=== PATIENT | male | born 1975 | race Caucasian/White ===

== ENCOUNTER 2018-02-08 23:17 | Emergency (ER) | payer MEDICAID ==
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
[2018-02-08] MEDS ORDERED: IBUPROFEN 800 MG TAB PO ONE (23:36)
[2018-02-09] MEDS ORDERED: HYDROCODONE/APAP 5/325 TAB PO ONE
[2018-02-09] MEDS ORDERED: fentaNYL 100 MCG/2 ML INJ IVP ONE (00:26)
[2018-02-09] MEDS ORDERED: NS 1,000 ML IV ONE (00:26)
[2018-02-09] MEDS ORDERED: KETOROLAC 15 MG/1 ML SDV IVP ONE (00:29)
[2018-02-09] MEDS ORDERED: IOPAMIDOL (ISOVUE 370) 100 ML BTL IV ONE (00:30)
[2018-02-09 00:31] LABS: PLATELET COUNT 253 10^3/uL (150-400)
[2018-02-09 01:29] VITALS: BP 134/75
== END 2018-02-09 01:47 | disposition home or self-care (01) ==
DX: R07.81 Pleurodynia (principal)
CPT/HCPCS: 82947-QW; 96374; J1885; J3010; Q9967

== ENCOUNTER 2018-05-20 02:51 | Emergency (ER) | payer MEDICAID ==
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
[2018-05-20] MEDS ORDERED: CEPHALEXIN 500MG PREPACK#4 BTL TAKEHOME ONE (03:55)
[2018-05-20] MEDS ORDERED: HYDROCOD/APAP 5/325 PREPACK#6 BTL TAKEHOME ONE (04:04)
[2018-05-20 04:24] VITALS: BP 146/92
== END 2018-05-20 04:15 | disposition home or self-care (01) ==
PROC: 0H9GXZZ Drainage of Left Hand Skin, External Approach (ICD-10-PCS; principal; 2018-05-20)
DX: L02.512 Cutaneous abscess of left hand (principal)

== ENCOUNTER → 2019-01-11 | Outpatient (CLI) | payer MEDICAID | LOC: FIMAGING 10:35 | PROVIDERS: ATTEND Physician Assistant Medical | DX: M50.321 Other cervical disc degeneration at C4-C5 level (principal) ==

== ENCOUNTER → 2019-02-20 | Outpatient (CLI) | payer MEDICAID ==
[~2019-02-20] MED LIST: GADOBUTROL 10 ML VIAL IVP ONE
== END ==
LOC: FIMAGING 14:43
PROVIDERS: ATTEND Physician Assistant Medical
DX: R22.1 Localized swelling, mass and lump, neck (principal); M50.30 Other cervical disc degeneration, unspecified cervical region; M54.2 Cervicalgia; Z87.898 Personal history of other specified conditions
CPT/HCPCS: A9585

== ENCOUNTER 2019-03-19 02:00 | Observation (INO) | payer MEDICAID ==
[2019-03-19] MEDS ORDERED: NS 1,000 ML IV ONE ×2 (02:06→02:07)
[2019-03-19 02:14] LABS: PLATELET COUNT 329 10^3/uL (150-400)
[2019-03-19 02:35] LABS: INR 0.94 (0.83-1.16); PROTIME(PATIENT) 12.2 SEC (12.0-15.0)
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
[2019-03-19] MEDS ORDERED: ACETAMINOPHEN 500 MG TAB PO ONE (02:58)
[2019-03-19] MEDS ORDERED: ONDANSETRON 4 MG/2 ML VIAL IVP PRN (03:08)
[2019-03-19] MEDS ORDERED: ONDANSETRON DISINTEGRATING 4 MG TAB PO PRN (03:08)
[2019-03-19] MEDS ORDERED: ACETAMINOPHEN 325 MG TAB PO PRN (03:08)
[2019-03-19] MEDS ORDERED: NS 1,000 ML IV SCH (03:15)
[2019-03-19] MEDS: IBUPROFEN 200 MG TAB PO PRN ×2 (04:45→08:35)
--- NOTE | 2019-03-19 04:47 | PDGENHP ---
History and Physical - Chief Complaint Syncope - History of Present Illness Source-patient able to provide history. EMR reviewed and case discussed with ED provider. HPI - this is a 43-year-old gentleman with a past medical history significant for chronic back pain, cervical spinal stenosis, chronic pain anxiety presents emergency department today with complaints of a syncopal episode. Patient reports this evening he took a liquid form of ketamine. He reports use of illicit drugs intermittently including Adderall, cocaine, amphetamines. Denies any IV drug use. Patient states that approximately 10-11 p.m. He was at home and took a slightly larger than normal dose of liquid form of ketamine. He also reports alcohol intake this evening. Patient notes he subsequently blacked out recalls writhing in bed with complaints of severe low back spasms. He thinks he must have rolled out of bed but does not think he hit his head. He woke up on the ground next to his bed. Is complaining of neck pain and low back pain currently. Patient reports he is [place] Patient became increasingly concerned with his symptoms that he called 911. Patient notes that before he called emergency services that he was having several episodes of vomiting. He denies any new numbness tingling or focal deficits. No report of bowel or bladder incontinence. Patient denies any recent illnesses. He reports a history of elevated blood pressures. He also reports that he used cocaine and Adderall 12 hr ago. History Information - Allergies/Home Medication List Allergies/Adverse Reactions: codeine Allergy (Verified 03/19/19 02:01) Home Medications: NK [No Known Home Meds] 03/19/19 [Last Taken Unknown] I have personally reviewed and updated: family history, medical history, social history, surgical history - Past Medical History Additional medical history: History recent elevated blood pressures. Anxiety. 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 Right clavicle ORIF - Family History Additional family history: Negative for CAD - Social History Smoking Status: Former smoker Tobacco Use: Other (Patient denies any current use.) Alcohol Use: Occasionally (Two beers 5 times weekly.) Drug Use: Cocaine, Marijuana, Other (Ketamine, Adderall) Additional social history: Patient lives alone. Review of Systems Review of Systems: ROS: 10pt was reviewed & negative except for what was stated in HPI & below Constitutional: Reports: no symptoms. Denies: chills, fever Cardiac: Reports: no symptoms, syncope. Denies: chest pain, palpitations Respiratory: Reports: cough. Denies: shortness of breath Gastrointestinal: Reports: vomitting Muscolosketal: Reports: back pain, neck pain Neurological: Reports: anxiety Physical Exam Physical Exam: Selected Entries 03/19/19 02:02 Blood Pressure Automatic Method Heart Rate 115 H Respiratory 20 Rate O2 Sat (%) 96 Temperature (C) 37.2 C Blood Pressure 144/101 H Mean Arterial 115 H Pressure (MAP) O2 Delivery Room Air Mode Temperature Oral Source Temp Pulse Resp BP Pulse Ox 36.6 C 113 H 18 149/104 H 93 03/19/19 03:57 03/19/19 03:57 03/19/19 03:57 03/19/19 03:57 03/19/19 03:57 Constitutional: no apparent distress, other (NAD. Patient is lying quietly in bed. Awake anxious.) Eyes: PERRL, anicteric sclera, EOMI, other (Mild conjunctival injection) Ears, Nose, Mouth, Throat: moist mucous membranes, No poor dentition Cardiovascular: no murmur, rub, or gallop, pulses symmetric bilaterally, tachycardia, No edema Peripheral Pulses: 2+: dorsalis-pedis (R), dorsalis-pedis (L) Gastrointestinal: normoactive bowel sounds, soft, non-tender abdomen, no palpable masses, No distension Genitourinary: no bladder tenderness, No orona in urethra Skin: warm, normal color, no rashes or abrasions Musculoskeletal: full muscle strength, pain with ROM (Low back), other (Moves all extremities.) Neurologic: AAOx3, sensation intact bilaterally, other (Grossly nonfocal exam.) , No facial droop Psychiatric: interacting appropriately, not encephalopathic, thought process linear, anxious, other (Patient is pleasant and cooperative.), No agitated Lab Data & Imaging Review 03/19/19 02:00 03/19/19 02:00 WBC 13.83 10^3/uL (3.80-9.50) H 03/19/19 02:00 RBC 5.61 10^6/uL (4.40-6.38) 03/19/19 02:00 Hgb 18.3 g/dL (13.7-17.5) H 03/19/19 02:00 Hct 53.8 % (40.0-51.0) H 03/19/19 02:00 MCV 95.9 fL (81.5-99.8) 03/19/19 02:00 MCH 32.6 pg (27.9-34.1) 03/19/19 02:00 MCHC 34.0 g/dL (32.4-36.7) 03/19/19 02:00 RDW 13.0 % (11.5-15.2) 03/19/19 02:00 Plt Count 329 10^3/uL (150-400) 03/19/19 02:00 MPV 10.6 fL (8.7-11.7) 03/19/19 02:00 Neut % (Auto) Not Reported 03/19/19 02:00 Lymph % (Auto) Not Reported 03/19/19 02:00 Faulkner % (Auto) Not Reported 03/19/19 02:00 Eos % (Auto) Not Reported 03/19/19 02:00 Baso % (Auto) Not Reported 03/19/19 02:00 Nucleat RBC Rel Count Not Reported 03/19/19 02:00 Absolute Neuts (auto) Not Reported 03/19/19 02:00 Absolute Lymphs (auto) Not Reported 03/19/19 02:00 Absolute Monos (auto) Not Reported 03/19/19 02:00 Absolute Eos (auto) Not Reported 03/19/19 02:00 Absolute Basos (auto) Not Reported 03/19/19 02:00 Absolute Nucleated RBC Not Reported 03/19/19 02:00 Immature Gran % Not Reported 03/19/19 02:00 Seg Neutrophils % 68.0 % 03/19/19 02:00 Band Neutrophils % 21.0 % 03/19/19 02:00 Lymphocytes % 2.0 % 03/19/19 02:00 Monocytes % 9.0 % 03/19/19 02:00 Eosinophils % 0.0 % 03/19/19 02:00 Basophils % 0.0 % 03/19/19 02:00 Metamyelocytes % 0.0 % 03/19/19 02:00 Myelocytes % 0.0 % 03/19/19 02:00 Promyelocytes % 0.0 % 03/19/19 02:00 Blast Cells % 0.0 % 03/19/19 02:00 Immature Gran # Not Reported 03/19/19 02:00 Absolute Seg Neuts 9.40 10^3/uL (1.70-6.50) H 03/19/19 02:00 Absolute Band Neuts 2.90 10^3/uL (0.00-0.70) H 03/19/19 02:00 Absolute Lymphocytes 0.28 10^3/uL (1.00-3.00) L 03/19/19 02:00 Absolute Monocytes 1.24 10^3/uL (0.30-0.80) H 03/19/19 02:00 Absolute Eosinophils 0.00 10^3/uL (0.03-0.40) L 03/19/19 02:00 Absolute Basophils 0.00 10^3/uL (0.02-0.10) L 03/19/19 02:00 Absolute Metamyelocyte 0.00 10^3/mL (0.00-0.00) 03/19/19 02:00 Absolute Myelocytes 0.00 10^3/mL (0.00-0.00) 03/19/19 02:00 Absolute Promyelocytes 0.00 10^3/uL (0.00-0.00) 03/19/19 02:00 Absolute Plasma Cells 0.00 10^3/uL (0.00-0.00) 03/19/19 02:00 Nucleated RBCs 0 /100 WBC (0-0) 03/19/19 02:00 Absolute Blast Cells 0.00 10^3/uL (0.00-0.00) 03/19/19 02:00 Plasma Cells % 0.0 % 03/19/19 02:00 Platelet Estimate ADEQUATE (ADEQ) 03/19/19 02:00 PT 12.2 SEC (12.0-15.0) 03/19/19 02:00 INR 0.94 (0.83-1.16) 03/19/19 02:00 APTT 27.4 SEC (23.0-38.0) 03/19/19 02:00 Sodium 144 mEq/L (135-145) 03/19/19 02:00 Potassium 4.4 mEq/L (3.5-5.2) 03/19/19 02:00 Chloride 107 mEq/L (97-110) 03/19/19 02:00 Carbon Dioxide 20 mEq/l (22-31) L 03/19/19 02:00 Anion Gap 17 mEq/L (6-14) H 03/19/19 02:00 BUN 13 mg/dL (7-23) 03/19/19 02:00 Creatinine 0.9 mg/dL (0.7-1.3) 03/19/19 02:00 Estimated GFR > 60 03/19/19 02:00 Glucose 125 mg/dL (70-100) H 03/19/19 02:00 Calcium 10.7 mg/dL (8.5-10.4) H 03/19/19 02:00 Phosphorus 2.5 mg/dL (2.5-4.5) 03/19/19 02:00 Magnesium 1.7 mg/dL (1.6-2.3) 03/19/19 02:00 Total Bilirubin 1.3 mg/dL (0.1-1.4) 03/19/19 02:00 Conjugated Bilirubin 0.2 mg/dL (0.0-0.5) 03/19/19 02:00 Unconjugated Bilirubin 1.1 mg/dL (0.0-1.1) 03/19/19 02:00 AST 38 IU/L (17-59) 03/19/19 02:00 ALT 41 IU/L (21-72) 03/19/19 02:00 Alkaline Phosphatase 92 IU/L (38-126) 03/19/19 02:00 POC Troponin I 0.02 ng/mL (0.00-0.08) 03/19/19 02:09 Total Protein 8.0 g/dL (6.3-8.2) 03/19/19 02:00 Albumin 5.0 g/dL (3.5-5.0) 03/19/19 02:00 Urine Opiates Screen NEGATIVE (NEGATIVE) 03/19/19 03:20 Urine Barbiturates NEGATIVE (NEGATIVE) 03/19/19 03:20 Ur Phencyclidine Scrn NEGATIVE (NEGATIVE) 03/19/19 03:20 Ur Amphetamine Screen NON-NEGATIVE (NEGATIVE) H 03/19/19 03:20 U Benzodiazepines Scrn NEGATIVE (NEGATIVE) 03/19/19 03:20 Urine Cocaine Screen NON-NEGATIVE (NEGATIVE) H 03/19/19 03:20 U Marijuana (THC) Screen NON-NEGATIVE (NEGATIVE) H 03/19/19 03:20 Ethyl Alcohol < 10 mg/dL (0-10) 03/19/19 02:00 Imaging Review: CXR - image reviewed myself. report pending. also discussed with ED provider. right middle lobe/perihalar haziness. new compared to xray from 2018. CT head wo - negative for acute findings. CT cervical spine wo - preliminary report reviewed without notation of acute findings. previous CT/MRI neck reviewed showing mild/mod degenerative disc disease C5/6 with mild central spinal stenosis and severe forminal stenosis. Visualized and Interpreted Chest x-ray results: Yes Visualized and Interpreted EKG results: Yes EKG additional interpertation: sinus tachm 110s. borderline ST depressions anterolateral leads. QTc 424. no comparison ekg avail. Assessment & Plan Assessment: this is a 43-year-old gentleman with a past medical history significant for chronic back pain, cervical spinal stenosis, chronic pain anxiety presents emergency department today with complaints of a syncopal episode. #Syncope (Acute) - suspect related to recent use of ketamine this evening. Patient denies any chest pain/SOB. no si/sx seizure activity. Will monitor over night. EKG with diffuse borderline ST depressions which could be rate related vs. #Abnormal EKG (Acute) - no comparison EKGs are available. Suspect related to cocaine use and/or rate related. Will plan to repeat EKG in the morning. Discussed with the patient increased risk for cardiac injury with use of cocaine and other drugs suggested echocardiogram in the morning. Patient declines an active order. Amenable to additional discussion with a provider pending repeat a.m. EKG. #Elevated blood pressure without history of hypertension - patient may have some underlying essential hypertension but advised to quit using drugs as this is likely contributing. Additionally he should establish care with and follow up with a primary care provider for follow-up and possible treatment. #polysubstance use - cessation advised. #leukocytosis -reactive vs. infectious. patient denies any fevers/chills. he currently notes occasional nonproductive cough that is new. lung exam clear and patient without cough during exam. bandemia is noted. CXR showing right middle lobe/perihilar haziness. possible PNA/aspiration? will check procalcitonin and add antibiotics if elevated. #polycythemia - likely secondary to dehydration. IV fluids. #chronic back pain - advise patient will not add any narcotics or sedatives at this time in setting of his syncopal episode. He is amenable to K-pad, topical analgesics. No focal deficits on exam. Imaging studies as noted above. FEN - continue IV fluids overnight. Patient received approximately 1.5L of the 2 L received in the emergency department. Encourage oral hydration. Will change diet to regular as tolerated. PPX-SCDs. Encourage mobilization. No anticoagulation anticipate short hospital stay. Cor status-full Disposition-patient admitted observation status on PCU floor for close cardiac monitoring and repeat EKG in the morning. Anticipate less than 2 midnight stay.
--- NOTE | 2019-03-19 06:31 | CPEKG ---
Test Reason : OPEN Blood Pressure : / mmHG Vent. Rate : 115 BPM Atrial Rate : 115 BPM P-R Int : 131 ms QRS Dur : 080 ms QT Int : 306 ms P-R-T Axes : 074 084 025 degrees QTc Int : 424 ms Sinus tachycardia Borderline ST depression, anterolateral leads Confirmed by Jordan Rae ([id number]) on 03/19/2019 6:31:09 AM Referred By: Jordan Rae Confirmed By:Jordan Rae
[2019-03-19 07:16] VITALS: BP 141/81
[2019-03-19] MEDS ORDERED: LIDOCAINE 4%/MENTHOL 1% PATCH TD SCH (09:00)
--- NOTE | 2019-03-19 10:04 | ASMTCASEMG ---
Living Arrangements What is your living Answers: With Other (Not Family) arrangement? Who do you live with? Case Management Evaluation Psychosocial Needs: Answers: Active Substance Abuse Notes: cocaine, marijuana, ket ami ne, Adderall (no IV) Discharge Plan Comments Coordination Status Comments Notes: Pt was admitted on OBS through the ED yesterday following an episode of syncope with a fall at home. He reported to ED staff that had been using ketamine and drinking alcohol. He reports occasional use of cocaine and ketamine and daily marijuana. He denies IV drug use. He has chronic back back, possibly due to cervical spine stenosis. He does not use any supportive services at home and says he is independent in his ADLs. [place] He is on cardiac monitoring here and a repeat EKG was done this morning. CM met with pt in his room. Pt declined information on drug use cessation offered by CM. CM did give him information on Meals [employer] Wheels [employer] Home[employer]. CM completed SBIRT as ordered. No CM needs identified but CM will be available should needs arise. TAB D/C plan: Independent to home Date Signed: 03/19/2019 10:03 AM Electronically Signed By:Ramona Hoang
--- NOTE | 2019-03-19 10:09 | ASMTCAGE ---
CAGE Do you feel you ought to Answers: No cut down on your drinking or drug use? Do people annoy you by Answers: No criticizing your drinking or drug use? Do you feel guilty about Answers: No your drinking or drug use? 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 Additional Comments "usually" Date Signed: 03/19/2019 10:08 AM Electronically Signed By:Ramona Hoang
--- NOTE | 2019-03-19 12:42 | ASDISCHSUM ---
Discharge Information Plan Status:Home with No Needs Medically Cleared to Leave: Discharge Date: CM D/C Disposition: ADT D/C Disposition: Projected Discharge Date: Transportation at D/C: Discharge Delay Reason: Follow-Up Date: Discharge Slot: Final Diagnosis: Placement Information Patient Contact Information Contact Name:LUDA Relationship:Father Address: Home Phone: City: [facility] Phone: State/[facility] Code: Email: Financial Information Financial Class:Medicaid Primary Plan Desc:MEDICA[employer] HEALTH FIRST EXTENSION SERVICE SPECIALIST IN CHARGE Primary Plan Number:[id number] Secondary Plan Desc: Secondary Plan Number: Assessment Information [facility] Initial CM Assessment Living Arrangements What is your living Answers: With Other (Not Family) arrangement? Who do you live with? Case Management Evaluation Psychosocial Needs: Answers: Active Substance Abuse Notes: cocaine, marijuana, ket ami ne, Adderall (no IV) Discharge Plan Comments Coordination Status Comments Notes: Pt was admitted on OBS through the ED yesterday following an episode of syncope with a fall at home. He reported to ED staff that had been using ketamine and drinking alcohol. He reports occasional use of cocaine and ketamine and daily marijuana. He denies IV drug use. He has chronic back back, possibly due to cervical spine stenosis. He does not use any supportive services at home and says he is independent in his ADLs. [place] He is on cardiac monitoring here and a repeat EKG was done this morning. CM met with pt in his room. Pt declined information on drug use cessation offered by CM. CM did give him information on Meals on Wheels [employer] Home[employer]. CM completed SBIRT as ordered. No CM needs identified but CM will be available should needs arise. TAB D/C plan: Independent to home Date Signed: 03/19/2019 10:03 AM Electronically Signed By:Ramona [email or web address].[email or web address] CAGE Questionnaire CAGE Do you feel you ought to Answers: No cut down on your drinking or drug use? Do people annoy you by Answers: No criticizing your drinking or drug use? Do you feel guilty about Answers: No your drinking or drug use? Do you drink or use drugs Answers: Yes first thing in the morning (Eye Seasoner Hand)? Additional Comments "usually" Date Signed: 03/19/2019 10:08 AM Electronically Signed By:Ramona Domingo.[email or web address] LACE LACE Length of stay for Answers: Less than 1 day current admission Comorbidities - select Answers: Opioid dependence all that apply / Chronic pain # of Emergency department Answers: 1-2 visits in the last 6 months Social determinants Answers: History of substance abuse (ETOH, street drugs, prescription drugs, etc.) Mental health diagnosis (anxiety, depression, pers onality disorders, etc.) Score: 11 Date Signed: 03/19/2019 12:39 PM Electronically Signed By:[email or web address] [email or web address] Case Management Discharge Plan Note Case Management Discharge Discharge Order Complete? Answers: Yes Patient to Obtain Answers: Independently Medications Transportation Arranged Answers: Family/Friends Discharge Comments Notes: Pt is being D/Cd independently to home today. No CM needs identified. He will call one of his roommates to pick him up. Date Signed: 03/19/2019 12:40 PM Electronically Signed By:Ramona [email or web address].RN Intervention Information
--- NOTE | 2019-03-19 13:30 | PDDCSUM ---
Discharge Summary Discharge Summary: Date of Admission: 03/19/2019 Date of Discharge: 03/20/2019 Consults: N/A Procedures: CT Head, Lumbar XR, CXR, Cervical Spine CT FOllowup: PCP Hospital Course Problem List: 43-year-old gentleman with a past medical history significant for chronic back pain, cervical spinal stenosis, chronic pain anxiety presents emergency department today with complaints of a syncopal episode. #Syncope (Acute) - suspect related to recent use of GHB (not ketamine as patient confirmed) on evening of admission. Patient denies any chest pain/SOB. no si/sx seizure activity. EKG with diffuse borderline ST depressions which resolved on repeat EKG on morning of discharge. #Abnormal EKG (Acute) - no comparison EKGs are available. Suspect related to cocaine use and/or rate related. Repeat EKG shows resolution of changes. Discussed with the patient increased risk for cardiac injury with use of cocaine and other drugs suggested echocardiogram in the morning. Patient declines an active order. #Elevated blood pressure without history of hypertension - patient may have some underlying essential hypertension but advised to quit using drugs as this is likely contributing. Additionally he should establish care with and follow up with a primary care provider for follow-up and possible treatment. #polysubstance use - cessation advised. #leukocytosis -He currently notes occasional nonproductive cough that is new. Bandemia is noted. CXR showing right middle lobe/perihilar haziness with elevated procalcitonin on admission. Started Levaquin which patient will complete 5 day course along with OTC antitussive/mucolytics. #polycythemia - likely secondary to dehydration. S/p IV fluids. #chronic back pain - K-pad, topical analgesics. No focal deficits on exam. Imaging studies as noted above.
[2019-03-19] MEDS ORDERED: PATCH REMOVAL 1 EA PATCH TD SCH (21:00)
--- NOTE | 2019-03-22 11:46 | CPEKG ---
Test Reason : OPEN Blood Pressure : / mmHG Vent. Rate : 107 BPM Atrial Rate : 106 BPM P-R Int : 124 ms QRS Dur : 074 ms QT Int : 383 ms P-R-T Axes : 080 081 000 degrees QTc Int : 511 ms Sinus tachycardia Prolonged QT interval Confirmed by Aly Hamilton ([id number]) on 03/22/2019 11:45:46 AM Referred By: Cherelle Servin Confirmed By:Aly Hamilton
== END 2019-03-19 14:29 | disposition home or self-care (01) ==
LOC: EDUNIT# → F2W 03:50
PROVIDERS: ADMIT Family Medicine; ATTEND Internal Medicine
DX: R55 Syncope and collapse (principal); R94.31 Abnormal electrocardiogram [ECG] [EKG]; D72.829 Elevated white blood cell count, unspecified; E86.0 Dehydration; M48.02 Spinal stenosis, cervical region; M54.2 Cervicalgia; F14.90 Cocaine use, unspecified, uncomplicated; F15.90 Other stimulant use, unspecified, uncomplicated; F12.20 Cannabis dependence, uncomplicated; Z72.89 Other problems related to lifestyle
CPT/HCPCS: 70450; 71045; 72100; 72125; 92523; 93005; 96360; 99285; G0378; 80305; 84484-ER; G0480